=== PATIENT | male | born 1965 | race Caucasian/White ===

== ENCOUNTER 2017-07-22 15:16 | Inpatient (IN) | payer OTHER ==
[~2017-07-22] VITALS: Ht 272 cm; Wt 61.2 kg
--- NOTE | ~2017-07-22 | O ---
[place], [place] OPERATIVE NOTE NAME: VAL OJEDA UNIT #: [id number] ROOM: 407 DOCTOR: FAIZA STEVENS MDFORMERLY [facility] BIRTHDATE: [birth year] DOS: 07/25/2017 GASTROENDOSCOPIC REPORT. HISTORY OF PRESENT ILLNESS: This is a 51-year-old patient who presented with multiple issues among which has been is ambulation, anemia, history of chronic alcoholism of heavy degree for multi decades and he drinks about 15 beers. Dysphagia and dyspepsia has been in the history. PAST MEDICAL HISTORY: Chronic alcoholism, possible cirrhosis. PAST SURGICAL HISTORY: None. SOCIAL HISTORY: Drinking about 30 beer every other day, marijuana and tobacco dependency. FAMILY HISTORY: Noncontributory. ALLERGIES: No known medication. PROCEDURE: Today's procedure part of investigation is esophagoscopy and biopsy. PREMEDICATION: Versed and Diprivan. SCOPE: Olympus forward-viewing gastroscope Q10 video. REPORT: After putting the patient in left lateral position and application of lubricant to the scope, the scope was introduced. Thereafter, under direct visualization, I advanced through the length of esophagus without difficulty. Diffuse distal esophageal and mid esophageal ulceration secondary to reflux was noticed. Distal esophageal stricture of high-grade was seen. Scope is non-negotiable into distal esophagus and beyond. Photographic series obtained and biopsy from the ulcer of esophagus was obtained, the patient extubated, tolerated procedure well. IMPRESSION: Diffuse distal and mid esophageal ulcerations, high grade distal esophageal stricture, history of alcoholism of extreme degree, protein-calorie malnutrition and electrolyte imbalance that has been corrected, thrombocytopenia. PLAN AND DISCUSSION: We are going to aggressively address esophageal ulcers. We are going to keep him on sucralfate 2 grams slurry q.i.d. 2 hours before meals and at bedtime. We are going to keep him on Protonix 40 mg IV b.i.d. while inpatient. We are going to make sure that he is on Ensure Plus 1 can 4 times a day to catch up with his protein-calorie malnutrition. We are going to enforce antireflux measures with elevation of the head of the bed 6 inch all time. We are going to assure that he is going to get 5 mg of Reglan liquid if possible daily and his diet to become soft mechanical diet rather grind did so that he does not have to have esophageal foreign body of food bolus risk and he is advised to abstain from alcohol drinking; however, I do not believe this is [place], [place] OPERATIVE NOTE NAME: VAL OJEDA UNIT #: [id number] ROOM: 407 DOCTOR: RODNEY ESPINOZA,REINALDO BIRTHDATE: [birth year] going to be fruitful in his case, however, we will try. As far as his records is concerns his CT scan of the abdomen and pelvis has already shown vegetation, dentation and thickening of the great gastric pouch and cholelithiasis. In addition to a small hiatal hernia and surprisingly enough report of CT scan is normal liver and his main organs including pancreas, spleen, adrenal gland and kidneys have not shown any pathology. REINALDO STEVENS MD CM:OPRECORD:OPERATIVE NOTE [id number] REINALDO STEVENS MD 07/25/17 1706 interface
--- NOTE | ~2017-07-22 | PR ---
[place], [place] PROGRESS NOTE NAME: VAL OJEDA UNIT #: [id number] ROOM: 407 DOCTOR: NAS TYLER MD BIRTHDATE: [birth year] DOS: 07/27/2017 SUBJECTIVE: The patient was seen and examined. He is awake and alert. Denies shortness of breath. He is on room air. He denies nausea or vomiting. PHYSICAL EXAMINATION: VITAL SIGNS: Temperature 97.7, pulse 72, respiration 18, blood pressure 92/54. HEENT: Shows no JVD. LUNGS: Clear. No wheeze. HEART: Normal S1, S2. No rub, thrill or gallop. ABDOMEN: Soft, nontender. There is no organomegaly. EXTREMITIES: Showed no edema. SKIN: Showed no rash. LABORATORY DATA: Hemoglobin 9.3, white count of 2.3, platelets of 99. Sodium 132, potassium 3.7, CO2 of 23, BUN 6, creatinine 0.56, calcium 7.2, albumin 1.8. ASSESSMENT AND PLAN: 1. Hyponatremia, which seems to be stable and overall slightly improved. Continue to follow labs while in the hospital, fluid restrict and use loop diuretics only. 2. Anemia. Follow H and H. Transfuse as felt needed. 3. Leukopenia. This appears to be stable. Continue to follow while in the hospital. 4. Hypoalbuminemia/protein-calorie malnutrition. Continue oral intake and supplementation as tolerated. NAS TYLER MD CM:PNTRANS [id number] NAS TYLER MD 07/27/17 1750 interface
[2017-07-22 16:10] VITALS: BP 110/70
[2017-07-22 16:23] LABS: BASO % 0.2 % (0.0-1.0); EOS % 0.2 % (1.0-4.0); HEMATOCRIT 27.2 % (42.0-52.0); HEMOGLOBIN 10.2 g/dl (14.0-18.0); LYMPH % 24.8 % (27.0-41.0); MEAN CELL VOLUME 95.8 fl (80.0-94.0); MEAN CORPUSCULAR HGB 35.9 pg (27.0-31.0); MEAN PLATELET VOLUME 9.8 fl (9.6-12.3); MONO # 0.2 10*3/uL (0.1-1.0); MONO % 4.4 % (3.0-9.0); NEUT # 2.9 10*3/uL (2.3-7.9); NEUT % 69.9 % (47.0-73.0); PLATELET COUNT AUTOMATED 138 10*3/uL (130-400); RED BLOOD COUNT 2.84 10*6/uL (4.50-5.90); RED CELL DISTRI WIDTH 13.3 % (0-14.5); WHITE BLOOD COUNT 4.1 10*3/uL (4.8-10.8)
[2017-07-22 16:41] LABS: ALBUMIN 2.5 gm/dl (3.1-4.5); ALKALINE PHOSPHATASE 134 U/L (45-117); BUN 15 mg/dl (7-24); CHLORIDE 89 mmol/L (98-107); CREATININE 0.84 mg/dL (0.70-1.30); LIPASE 228 U/L (73-393); POTASSIUM 3.8 mmol/L (3.5-5.1); SGOT/AST 56 IU/L (3-35); SGPT/ALT 43 U/L (12-78); SODIUM 122 mmol/L (136-145)
[2017-07-22 16:42] LABS: ETHYL ALCOHOL < 3.0 mg/dl (<3); TROPONIN I < 0.015 ng/ml (<0.045)
[2017-07-22 16:56] LABS: MEAN CORPUSCULAR HGB CONC 37.5 g/dl (33.0-37.0)
[2017-07-22 17:13] VITALS: BP 111/92
[2017-07-22 18:22] LABS: ACT PARTIAL THROMBO TIME 27.3 SECONDS (20.8-31.5); INTERNATIONAL NORM RATIO 1.2 (2.0-3.5)
[2017-07-22 19:24] VITALS: BP 104/61
[2017-07-22 20:00] VITALS: BP 106/67
[2017-07-23] VITALS: BP 103/60
[2017-07-23 07:09] LABS: HEMATOCRIT 22.2 % (42.0-52.0); MEAN CELL VOLUME 98.2 fl (80.0-94.0); MEAN CORPUSCULAR HGB 35.8 pg (27.0-31.0); MEAN CORPUSCULAR HGB CONC 36.5 g/dl (33.0-37.0); MEAN PLATELET VOLUME 9.9 fl (9.6-12.3); NUCLEATED RED BLOOD CELL 1.1 % (0.0-0.0); PLATELET COUNT AUTOMATED 119 10*3/uL (130-400); RED BLOOD COUNT 2.26 10*6/uL (4.50-5.90); RED CELL DISTRI WIDTH 13.7 % (0-14.5); WHITE BLOOD COUNT 3.6 10*3/uL (4.8-10.8)
[2017-07-23 07:11] LABS: HEMOGLOBIN 8.1 g/dl (14.0-18.0)
[2017-07-23 07:35] LABS: ACT PARTIAL THROMBO TIME 26.7 SECONDS (20.8-31.5); INTERNATIONAL NORM RATIO 1.1 (2.0-3.5)
[2017-07-23 07:38] LABS: CHLORIDE 93 mmol/L (98-107); PLATELET SUFFICIENCY LOW (NORMAL); POLYCHROMASIA SLIGHT; SODIUM 128 mmol/L (136-145); TOTAL CELLS COUNTED 100 #CELLS
[2017-07-23 08:00] VITALS: BP 112/78
[2017-07-23 08:09] LABS: ALBUMIN 2.2 gm/dl (3.1-4.5); ALKALINE PHOSPHATASE 115 U/L (45-117); BUN 14 mg/dl (7-24); CHOLESTEROL 53 mg/dL (<200); CREATININE 0.67 mg/dL (0.70-1.30); FREE T4 1.28 ng/dl (0.76-1.46); HDL CHOLESTEROL 28 mg/dl (40-60); LDL CHOLESTEROL 9 mg/dL (9-159); PHOSPHOROUS 3.7 mg/dL (2.5-4.9); SGOT/AST 47 IU/L (3-35); SGPT/ALT 35 U/L (12-78); TOTAL PROTEIN 5.2 gm/dL (6.4-8.2); TRIGLYCERIDES 80 mg/dl (<150); VLDL CHOLESTEROL 16 mg/dL (6-40)
[2017-07-23 08:19] LABS: POTASSIUM 2.6 mmol/L (3.5-5.1)
[2017-07-23 08:52] LABS: VITAMIN D, 25-HYDROXY 5.3 ng/mL (30-100)
[2017-07-23 12:00] VITALS: BP 106/60
[2017-07-23 13:09] LABS: BILIRUBIN 2+ (NEGATIVE); BLOOD TRACE-LYSED (NEGATIVE); CLARITY CLEAR (CLEAR); COLOR YELLOW (YELLOW); GLUCOSE TRACE (NEGATIVE); KETONE 1+ (NEGATIVE); LEUKO ESTERASE NEGATIVE (NEGATIVE); NITRITE POSITIVE (NEGATIVE); PH 6.5 (5.0-9.0); UROBILINOGEN >= 8.0 E.U./dl (0.2-1.0)
[2017-07-23 13:15] LABS: URINE AMPHETAMINES < 1000 (1000ng/ml); URINE BARBITURATES < 200 (200ng/ml); URINE BENZODIAZEPINES < 200 (200ng/ml); URINE CANNABINOIDS (THC) > 50 (50ng/ml); URINE COCAINE < 300 (300ng/ml); URINE METHADONE < 300 (300ng/ml); URINE OPIATES > 300 (300ng/ml)
[2017-07-23 13:16] LABS: URINE PHENCYCLIDINE < 25 (25ng/ml)
[2017-07-23 13:24] LABS: BACTERIA 1+; MUCOUS 1+; RBC 16-20 rbc/hpf (0-2)
[2017-07-23 16:00] VITALS: BP 112/65
[2017-07-23 20:00] VITALS: BP 96/51
[2017-07-24] VITALS (9 sets, daily range): BP systolic 95–111; BP diastolic 57–68
[2017-07-24 05:57] LABS: ALBUMIN 1.9 gm/dl (3.1-4.5); BUN 11 mg/dl (7-24); CHLORIDE 99 mmol/L (98-107); CREATININE 0.59 mg/dL (0.70-1.30); PHOSPHOROUS 2.4 mg/dL (2.5-4.9); SODIUM 131 mmol/L (136-145)
[2017-07-24 06:09] LABS: POTASSIUM 4.5 mmol/L (3.5-5.1)
[2017-07-24 06:59] LABS: BASO % 0.3 % (0.0-1.0); HEMATOCRIT 19.2 % (42.0-52.0); HEMOGLOBIN 6.8 g/dl (14.0-18.0); LYMPH # 1.2 10*3/uL (1.3-4.4); LYMPH % 41.1 % (27.0-41.0); MEAN CORPUSCULAR HGB 36.6 pg (27.0-31.0); MEAN CORPUSCULAR HGB CONC 35.4 g/dl (33.0-37.0); MEAN PLATELET VOLUME 9.9 fl (9.6-12.3); MONO # 0.2 10*3/uL (0.1-1.0); MONO % 7.4 % (3.0-9.0); NEUT # 1.5 10*3/uL (2.3-7.9); NEUT % 49.5 % (47.0-73.0); PLATELET COUNT AUTOMATED 116 10*3/uL (130-400); RED BLOOD COUNT 1.86 10*6/uL (4.50-5.90); RED CELL DISTRI WIDTH 14.2 % (0-14.5)
[2017-07-24 07:00] LABS: MEAN CELL VOLUME 103.2 fl (80.0-94.0)
[2017-07-24 20:59] LABS: MEAN CORPUSCULAR HGB CONC 35.6 g/dl (33.0-37.0); MEAN PLATELET VOLUME 9.5 fl (9.6-12.3); NUCLEATED RED BLOOD CELL 0.1 10*3/uL (0.0-0.0); NUCLEATED RED BLOOD CELL 2.2 % (0.0-0.0); PLATELET COUNT AUTOMATED 108 10*3/uL (130-400); RED CELL DISTRI WIDTH 17.2 % (0-14.5); WHITE BLOOD COUNT 3.7 10*3/uL (4.8-10.8)
[2017-07-24 21:00] LABS: HEMATOCRIT 30.6 % (42.0-52.0); HEMOGLOBIN 10.9 g/dl (14.0-18.0); MEAN CELL VOLUME 92.7 fl (80.0-94.0)
[2017-07-24 21:19] LABS: BURR CELLS FEW; PLATELET SUFFICIENCY LOW (NORMAL); POLYCHROMASIA SLIGHT; TOTAL CELLS COUNTED 100 #CELLS
[2017-07-25] VITALS (9 sets, daily range): BP systolic 48–109; BP diastolic 18–74
[2017-07-25 06:42] LABS: BASO % 0.6 % (0.0-1.0); EOS % 0.6 % (1.0-4.0); HEMATOCRIT 26.1 % (42.0-52.0); HEMOGLOBIN 9.4 g/dl (14.0-18.0); LYMPH # 1.1 10*3/uL (1.3-4.4); LYMPH % 35.1 % (27.0-41.0); MEAN CELL VOLUME 92.9 fl (80.0-94.0); MEAN CORPUSCULAR HGB 33.5 pg (27.0-31.0); MONO # 0.2 10*3/uL (0.1-1.0); MONO % 6.1 % (3.0-9.0); NEUT # 1.8 10*3/uL (2.3-7.9); NEUT % 57.3 % (47.0-73.0); PLATELET COUNT AUTOMATED 96 10*3/uL (130-400); RED BLOOD COUNT 2.81 10*6/uL (4.50-5.90); RED CELL DISTRI WIDTH 17.7 % (0-14.5); WHITE BLOOD COUNT 3.1 10*3/uL (4.8-10.8)
[2017-07-25 06:55] LABS: BUN 10 mg/dl (7-24); CHLORIDE 97 mmol/L (98-107); CREATININE 0.59 mg/dL (0.70-1.30); POTASSIUM 4.2 mmol/L (3.5-5.1); SODIUM 131 mmol/L (136-145)
[2017-07-26 00:02] VITALS: BP 86/56
[2017-07-26 05:52] LABS: BASO % 0.9 % (0.0-1.0); EOS % 0.9 % (1.0-4.0); HEMATOCRIT 26.9 % (42.0-52.0); HEMOGLOBIN 9.5 g/dl (14.0-18.0); LYMPH # 1.3 10*3/uL (1.3-4.4); LYMPH % 39.1 % (27.0-41.0); MEAN CELL VOLUME 95.1 fl (80.0-94.0); MEAN CORPUSCULAR HGB 33.6 pg (27.0-31.0); MEAN CORPUSCULAR HGB CONC 35.3 g/dl (33.0-37.0); MEAN PLATELET VOLUME 10.1 fl (9.6-12.3); MONO # 0.3 10*3/uL (0.1-1.0); MONO % 8.7 % (3.0-9.0); NEUT # 1.6 10*3/uL (2.3-7.9); NEUT % 49.5 % (47.0-73.0); NUCLEATED RED BLOOD CELL 0.9 % (0.0-0.0); PLATELET COUNT AUTOMATED 106 10*3/uL (130-400); RED BLOOD COUNT 2.83 10*6/uL (4.50-5.90); WHITE BLOOD COUNT 3.2 10*3/uL (4.8-10.8)
[2017-07-26 05:58] LABS: BUN 9 mg/dl (7-24); CHLORIDE 98 mmol/L (98-107); CREATININE 0.65 mg/dL (0.70-1.30); SODIUM 131 mmol/L (136-145)
[2017-07-26 08:00] VITALS: BP 105/69
[2017-07-26 12:00] VITALS: BP 92/65
[2017-07-26 16:00] VITALS: BP 115/93
[2017-07-26 20:00] VITALS: BP 108/66
[2017-07-27 00:01] VITALS: BP 101/69
[2017-07-27 06:03] LABS: HEMATOCRIT 26.1 % (42.0-52.0); HEMOGLOBIN 9.3 g/dl (14.0-18.0); MEAN CELL VOLUME 94.9 fl (80.0-94.0); MEAN CORPUSCULAR HGB 33.8 pg (27.0-31.0); MEAN CORPUSCULAR HGB CONC 35.6 g/dl (33.0-37.0); MEAN PLATELET VOLUME 10.1 fl (9.6-12.3); PLATELET COUNT AUTOMATED 99 10*3/uL (130-400); RED BLOOD COUNT 2.75 10*6/uL (4.50-5.90); RED CELL DISTRI WIDTH 18.3 % (0-14.5); WHITE BLOOD COUNT 2.3 10*3/uL (4.8-10.8)
[2017-07-27 06:34] LABS: ALBUMIN 1.8 gm/dl (3.1-4.5); ALKALINE PHOSPHATASE 87 U/L (45-117); BUN 6 mg/dl (7-24); CHLORIDE 99 mmol/L (98-107); CREATININE 0.56 mg/dL (0.70-1.30); POTASSIUM 3.7 mmol/L (3.5-5.1); SGOT/AST 28 IU/L (3-35); SGPT/ALT 21 U/L (12-78); SODIUM 132 mmol/L (136-145); TOTAL PROTEIN 4.4 gm/dL (6.4-8.2)
[2017-07-27 06:35] LABS: ATYPICAL LYMPHS 2 % (0-0); BASOPHILS 1 % (0-1); TOTAL CELLS COUNTED 100 #CELLS
[2017-07-27 06:36] LABS: BURR CELLS FEW; PLATELET SUFFICIENCY LOW (NORMAL)
[2017-07-27 08:00] VITALS: BP 119/72
[2017-07-27 12:00] VITALS: BP 92/54
[2017-07-27 16:00] VITALS: BP 120/80
[2017-07-27 20:00] VITALS: BP 109/87
[2017-07-28] VITALS: BP 108/80
[2017-07-28 07:01] LABS: BASO % 0.6 % (0.0-1.0); EOS % 0.6 % (1.0-4.0); HEMATOCRIT 25.4 % (42.0-52.0); LYMPH # 1.1 10*3/uL (1.3-4.4); LYMPH % 31.6 % (27.0-41.0); MEAN CELL VOLUME 95.8 fl (80.0-94.0); MEAN CORPUSCULAR HGB CONC 35.4 g/dl (33.0-37.0); MEAN PLATELET VOLUME 10.3 fl (9.6-12.3); MONO # 0.2 10*3/uL (0.1-1.0); MONO % 5.4 % (3.0-9.0); NEUT # 2.2 10*3/uL (2.3-7.9); NEUT % 61.5 % (47.0-73.0); PLATELET COUNT AUTOMATED 108 10*3/uL (130-400); RED BLOOD COUNT 2.65 10*6/uL (4.50-5.90); RED CELL DISTRI WIDTH 18.3 % (0-14.5); WHITE BLOOD COUNT 3.5 10*3/uL (4.8-10.8)
[2017-07-28 07:08] LABS: ALBUMIN 1.8 gm/dl (3.1-4.5); BUN 6 mg/dl (7-24); CHLORIDE 95 mmol/L (98-107); CREATININE 0.55 mg/dL (0.70-1.30); PHOSPHOROUS 2.2 mg/dL (2.5-4.9); POTASSIUM 3.9 mmol/L (3.5-5.1); SODIUM 130 mmol/L (136-145)
[2017-07-28 08:00] VITALS: BP 118/76
[2017-07-28 12:00] VITALS: BP 95/60
[2017-07-28] MEDS ORDERED: NATURE'S BLEND100 M2 PO (15:42)
[2017-07-28] MEDS ORDERED: CIPRO500 MG PO (15:42)
[2017-07-28] MEDS ORDERED: REGLAN10 MG/10 M PO (15:42)
[2017-07-28] MEDS ORDERED: Vitamin D PO (15:42)
[2017-07-28] MEDS ORDERED: PROTONIX40 M1 PO (15:42)
[2017-07-28] MEDS ORDERED: FLUDROCORTISON0.1 MG PO (15:42)
[2017-07-28] MEDS ORDERED: Carafate1 GM/10 ML PO (15:42)
[2017-07-28] MEDS ORDERED: NATURE'S BLEND F1 MG PO (15:42)
[2017-07-28] MEDS ORDERED: FLAGYL500 MG PO (15:42)
[2017-07-28] MEDS ORDERED: SODIUM CHLORI1000 MG PO (15:51)
== END 2017-07-28 16:50 | disposition other institution (70) | DRG 380 ==
LOC: ED 15:16 → EDHOLD 17:08 → 4E 17:08
PROVIDERS: Internal Medicine; Internal Medicine Nephrology; Physician Assistant
PROC: 30233N1 Transfusion of Nonautologous Red Blood Cells into Peripheral Vein, Percutaneous Approach (ICD-10-PCS; 2017-07-24)
PROC: 0DB58ZX Excision of Esophagus, Via Natural or Artificial Opening Endoscopic, Diagnostic (ICD-10-PCS; principal; 2017-07-25)
DX: K22.11 Ulcer of esophagus with bleeding (principal); E43 Unspecified severe protein-calorie malnutrition; D69.6 Thrombocytopenia, unspecified; E67.8 Other specified hyperalimentation; D62 Acute posthemorrhagic anemia; K29.91 Gastroduodenitis, unspecified, with bleeding; E87.8 Other disorders of electrolyte and fluid balance, not elsewhere classified; E87.1 Hypo-osmolality and hyponatremia; Z68.1 Body mass index [BMI] 19.9 or less, adult; E83.39 Other disorders of phosphorus metabolism; K22.2 Esophageal obstruction; K80.20 Calculus of gallbladder without cholecystitis without obstruction; W07.XXXA Fall from chair, initial encounter; E87.6 Hypokalemia; D53.9 Nutritional anemia, unspecified; D72.810 Lymphocytopenia; M54.9 Dorsalgia, unspecified; F10.20 Alcohol dependence, uncomplicated; I95.1 Orthostatic hypotension; R74.0 Nonspecific elevation of levels of transaminase and lactic acid dehydrogenase [LDH]; E80.6 Other disorders of bilirubin metabolism; F17.210 Nicotine dependence, cigarettes, uncomplicated; G89.29 Other chronic pain; Y93.89 Activity, other specified; Y92.89 Other specified places as the place of occurrence of the external cause; Y99.8 Other external cause status; Z83.3 Family history of diabetes mellitus

== ENCOUNTER → 2017-10-02 | Outpatient (CLI) | payer OTHER ==
[~2017-10-02] MED LIST: CIPRO500 MG PO; Carafate1 GM/10 ML PO; FLAGYL500 MG PO; FLUDROCORTISON0.1 MG PO; NATURE'S BLEND F1 MG PO; NATURE'S BLEND100 M2 PO; PROTONIX40 M1 PO; REGLAN10 MG/10 M PO; SODIUM CHLORI1000 MG PO; Vitamin D PO
[2017-10-02 14:18] LABS: BASO % 0.8 % (0.0-1.0); EOS # 0.2 10*3/uL (0.0-0.4); EOS % 2.9 % (1.0-4.0); HEMATOCRIT 40.8 % (42.0-52.0); HEMOGLOBIN 13.5 g/dl (14.0-18.0); LYMPH # 2.3 10*3/uL (1.3-4.4); LYMPH % 45.2 % (27.0-41.0); MEAN CELL VOLUME 98.1 fl (80.0-94.0); MEAN CORPUSCULAR HGB 32.5 pg (27.0-31.0); MEAN CORPUSCULAR HGB CONC 33.1 g/dl (33.0-37.0); MEAN PLATELET VOLUME 9.5 fl (9.6-12.3); MONO # 0.4 10*3/uL (0.1-1.0); MONO % 8.5 % (3.0-9.0); NEUT # 2.2 10*3/uL (2.3-7.9); NEUT % 42.4 % (47.0-73.0); PLATELET COUNT AUTOMATED 224 10*3/uL (130-400); RED BLOOD COUNT 4.16 10*6/uL (4.50-5.90); RED CELL DISTRI WIDTH 13.7 % (0-14.5); WHITE BLOOD COUNT 5.2 10*3/uL (4.8-10.8)
[2017-10-02 14:43] LABS: ALBUMIN 3.8 gm/dl (3.1-4.5); ALKALINE PHOSPHATASE 117 U/L (45-117); BUN 9 mg/dl (7-24); CHLORIDE 98 mmol/L (98-107); CREATININE 0.89 mg/dL (0.70-1.30); POTASSIUM 4.3 mmol/L (3.5-5.1); SGOT/AST 25 IU/L (3-35); SGPT/ALT 13 U/L (12-78); SODIUM 137 mmol/L (136-145); TOTAL PROTEIN 7.8 gm/dL (6.4-8.2)
== END | disposition home or self-care (01) ==
LOC: CARD 13:00 → LAB 13:09
PROVIDERS: Internal Medicine
DX: I35.1 Nonrheumatic aortic (valve) insufficiency (principal); K29.60 Other gastritis without bleeding; E55.9 Vitamin D deficiency, unspecified; E43 Unspecified severe protein-calorie malnutrition; R60.0 Localized edema

== ENCOUNTER → 2018-04-01 | Outpatient (CLI) | payer OTHER ==
[~2018-04-01] MED LIST changes: +ASPIR LOW81 MG PO; +CARVEDILOL6.25 MG PO; +K-TAB20 MEQ PO; +KLOR-CON M2020 ME1 PO; +LASIX40 MG PO; +LEVAQUIN750 M1 PO; +LOSARTAN POTASS25 M1 PO; +METOPROLOL25 MG PO; +MUCINEX ER600 MG PO; +PAXIL20 M1 PO; +PREDNISONE10 MG PO; +VITAMIN D-32000 UNIT PO; +XARE20MG PO
== END | disposition home or self-care (01) ==
LOC: RESCLI 01:23
DX: Z09 Encounter for follow-up examination after completed treatment for conditions other than malignant neoplasm (principal); J44.9 Chronic obstructive pulmonary disease, unspecified; I50.32 Chronic diastolic (congestive) heart failure; E66.9 Obesity, unspecified; E55.9 Vitamin D deficiency, unspecified; K21.9 Gastro-esophageal reflux disease without esophagitis; F32.9 Major depressive disorder, single episode, unspecified; I48.0 Paroxysmal atrial fibrillation; E87.1 Hypo-osmolality and hyponatremia; E53.8 Deficiency of other specified B group vitamins; F17.200 Nicotine dependence, unspecified, uncomplicated; Z79.899 Other long term (current) drug therapy; Z71.6 Tobacco abuse counseling; Z88.8 Allergy status to other drugs, medicaments and biological substances

== ENCOUNTER → 2018-05-07 | Outpatient (CLI) | payer OTHER | END | disposition home or self-care (01) | LOC: RESCLI 01:05 | DX: Z01.818 Encounter for other preprocedural examination (principal); E55.9 Vitamin D deficiency, unspecified; K21.9 Gastro-esophageal reflux disease without esophagitis; E53.8 Deficiency of other specified B group vitamins; F32.9 Major depressive disorder, single episode, unspecified; I11.0 Hypertensive heart disease with heart failure; I50.32 Chronic diastolic (congestive) heart failure; E87.1 Hypo-osmolality and hyponatremia; J90 Pleural effusion, not elsewhere classified; J44.9 Chronic obstructive pulmonary disease, unspecified; I48.0 Paroxysmal atrial fibrillation; F17.210 Nicotine dependence, cigarettes, uncomplicated; E66.09 Other obesity due to excess calories; Z68.32 Body mass index [BMI] 32.0-32.9, adult; Z79.899 Other long term (current) drug therapy; Z71.6 Tobacco abuse counseling; Z88.8 Allergy status to other drugs, medicaments and biological substances ==

== ENCOUNTER → 2018-05-18 | Outpatient (CLI) | payer OTHER ==
[2018-05-19 08:10] LABS: ALPHA-1-ANTITRYPSIN, SERUM 150 mg/dL (90-200)
== END | disposition home or self-care (01) ==
LOC: LAB 12:43
PROVIDERS: Internal Medicine Critical Care Medicine
DX: J44.9 Chronic obstructive pulmonary disease, unspecified (principal)

== ENCOUNTER → 2018-06-12 | Outpatient (CLI) | payer OTHER | END | disposition home or self-care (01) | LOC: RESCLI 01:51 | DX: Z00.00 Encounter for general adult medical examination without abnormal findings (principal); I48.0 Paroxysmal atrial fibrillation; I11.0 Hypertensive heart disease with heart failure; I50.32 Chronic diastolic (congestive) heart failure; E55.9 Vitamin D deficiency, unspecified; K21.9 Gastro-esophageal reflux disease without esophagitis; E53.8 Deficiency of other specified B group vitamins; F32.9 Major depressive disorder, single episode, unspecified; E87.1 Hypo-osmolality and hyponatremia; F17.210 Nicotine dependence, cigarettes, uncomplicated; E66.9 Obesity, unspecified; J44.9 Chronic obstructive pulmonary disease, unspecified; Z71.6 Tobacco abuse counseling; Z79.899 Other long term (current) drug therapy; Z88.8 Allergy status to other drugs, medicaments and biological substances ==

== ENCOUNTER → 2018-07-03 | Day surgery (SDC) | payer OTHER ==
[~2018-07-03] VITALS: Ht 182.8 cm; Wt 68.0 kg
--- NOTE | ~2018-07-03 | O ---
[place], [place] OPERATIVE NOTE NAME: VAL OJEDA UNIT #: [id number] ROOM: DOCTOR: REINALDO STEVENS MD BIRTHDATE: [birth year] DOS: 07/03/2018 GASTROENDOSCOPIC REPORT The patient has presented with chief complaint of colonic screening. The patient is a 51-year-old. ALLERGIES: No known medication. FAMILY HISTORY: Noncontributory. PAST SURGICAL HISTORY: Unremarkable. PAST MEDICAL HISTORY: COPD, atrial fibrillation, congestive heart failure. SOCIAL HISTORY: Smoker history of alcohol consumption. PROCEDURE: Today's procedure part of investigation is colonoscopy plus polypectomy. PREMEDICATION: Propofol. SCOPE: Olympus forward-viewing colonoscope 10L video. REPORT: After putting the patient in left lateral position and application of lubricant to the scope, the scope was introduced. Thereafter, under direct visualization, advanced through the length of colon without difficulty. Base of the cecum explored, appendiceal orifice identified, ileocecal valve was defined. Scope was gradually withdrawn from ascending, transverse, descending colon back to the rectal pouch, piecemeal polypectomy from a polypoid sessile polyp was done. Air was suctioned. The patient extubated, tolerated the procedure well. IMPRESSION: Rectal pouch sessile polypectomy. PLAN ON DISCUSSION: High fiber fruit diet. ACTIVITY: Ad morena. FOLLOWUP: Routinely with you in office, p.r.n. visit with us in GI Clinic. The patient advised to abstain from smoking, and alcohol. [place], [place] OPERATIVE NOTE NAME: VAL OJEDA UNIT #: [id number] ROOM: DOCTOR: REINALDO STEVENS MD BIRTHDATE: [birth year] REINALDO STEVENS MD CM:OPRECORD:OPERATIVE NOTE [id number] REINALDO STEVENS MD 07/03/18 1158 interface
[2018-07-03 09:00] VITALS: BP 157/68
[2018-07-03 11:40] VITALS: BP 119/69
[2018-07-03 11:51] VITALS: BP 133/73
[2018-07-03 12:09] VITALS: BP 148/79
== END | disposition home or self-care (01) ==
LOC: SDC 06-12 11:00
DX: Z12.11 Encounter for screening for malignant neoplasm of colon (principal); K62.1 Rectal polyp; I10 Essential (primary) hypertension; I11.0 Hypertensive heart disease with heart failure; J44.9 Chronic obstructive pulmonary disease, unspecified; K21.9 Gastro-esophageal reflux disease without esophagitis; F10.10 Alcohol abuse, uncomplicated; F17.210 Nicotine dependence, cigarettes, uncomplicated; F32.9 Major depressive disorder, single episode, unspecified; Z83.3 Family history of diabetes mellitus

== ENCOUNTER → 2018-08-03 | Outpatient (CLI) | payer OTHER | END | disposition home or self-care (01) | LOC: CARD 07:40 | DX: I35.1 Nonrheumatic aortic (valve) insufficiency (principal); I48.0 Paroxysmal atrial fibrillation; I50.23 Acute on chronic systolic (congestive) heart failure; I42.6 Alcoholic cardiomyopathy ==

== ENCOUNTER → 2018-09-22 | Outpatient (CLI) | payer OTHER | END | disposition home or self-care (01) | LOC: RESCLI 08:24 | DX: Z00.00 Encounter for general adult medical examination without abnormal findings (principal); I11.0 Hypertensive heart disease with heart failure; I50.32 Chronic diastolic (congestive) heart failure; E55.9 Vitamin D deficiency, unspecified; K21.9 Gastro-esophageal reflux disease without esophagitis; E53.8 Deficiency of other specified B group vitamins; E87.1 Hypo-osmolality and hyponatremia; I48.0 Paroxysmal atrial fibrillation; F32.9 Major depressive disorder, single episode, unspecified; Z79.899 Other long term (current) drug therapy; Z87.891 Personal history of nicotine dependence; Z88.8 Allergy status to other drugs, medicaments and biological substances ==

== ENCOUNTER → 2018-10-28 | Outpatient (CLI) | payer OTHER ==
[2018-10-28 10:02] LABS: BASO # 0.1 10*3/uL (0.0-0.1); EOS # 0.2 10*3/uL (0.0-0.4); EOS % 4.4 % (1.0-4.0); HEMATOCRIT 44.2 % (42.0-52.0); HEMOGLOBIN 14.9 g/dl (14.0-18.0); LYMPH # 2.4 10*3/uL (1.3-4.4); MEAN CELL VOLUME 101.1 fl (80.0-94.0); MEAN CORPUSCULAR HGB 34.1 pg (27.0-31.0); MEAN CORPUSCULAR HGB CONC 33.7 g/dl (33.0-37.0); MONO # 0.4 10*3/uL (0.1-1.0); MONO % 8.3 % (3.0-9.0); NEUT % 39.1 % (47.0-73.0); PLATELET COUNT AUTOMATED 215 10*3/uL (130-400); RED BLOOD COUNT 4.37 10*6/uL (4.50-5.90); RED CELL DISTRI WIDTH 12.7 % (0-14.5); WHITE BLOOD COUNT 5.2 10*3/uL (4.8-10.8)
[2018-10-28 10:28] LABS: ALBUMIN 3.5 gm/dl (3.1-4.5); ALKALINE PHOSPHATASE 133 U/L (45-117); BUN 11 mg/dl (7-24); CHLORIDE 101 mmol/L (98-107); CHOLESTEROL 141 mg/dL (<200); CREATININE 1.14 mg/dL (0.70-1.30); HDL CHOLESTEROL 42 mg/dl (40-60); LDL CHOLESTEROL 80 mg/dL (9-159); POTASSIUM 4.5 mmol/L (3.5-5.1); SGOT/AST 22 IU/L (3-35); SGPT/ALT 19 U/L (12-78); SODIUM 136 mmol/L (136-145); TOTAL PROTEIN 7.3 gm/dL (6.4-8.2); TRIGLYCERIDES 93 mg/dl (<150); VLDL CHOLESTEROL 19 mg/dL (6-40)
[2018-10-28 12:07] LABS: VITAMIN D, 25-HYDROXY 36.1 ng/mL (30-100)
== END | disposition home or self-care (01) ==
LOC: LAB 09:28
PROVIDERS: Internal Medicine
DX: I10 Essential (primary) hypertension (principal)

== ENCOUNTER → 2019-01-06 | Outpatient (CLI) | payer OTHER | END | disposition home or self-care (01) | LOC: RESCLI 01:02 | DX: I11.0 Hypertensive heart disease with heart failure (principal); I50.32 Chronic diastolic (congestive) heart failure; E55.9 Vitamin D deficiency, unspecified; K21.9 Gastro-esophageal reflux disease without esophagitis; E53.8 Deficiency of other specified B group vitamins; E87.1 Hypo-osmolality and hyponatremia; I48.0 Paroxysmal atrial fibrillation; F32.9 Major depressive disorder, single episode, unspecified; J44.9 Chronic obstructive pulmonary disease, unspecified; Z79.899 Other long term (current) drug therapy; Z87.891 Personal history of nicotine dependence ==

== ENCOUNTER → 2019-04-06 | Outpatient (CLI) | payer OTHER ==
[~2019-04-06] MED LIST changes: +ANTIBIOTIC28.4 GM T; +CEPHALEXIN500 M1 PO
== END | disposition home or self-care (01) ==
LOC: RESCLI 00:27
DX: Z23 Encounter for immunization (principal); L03.113 Cellulitis of right upper limb; E53.8 Deficiency of other specified B group vitamins; I11.0 Hypertensive heart disease with heart failure; I50.32 Chronic diastolic (congestive) heart failure; K21.9 Gastro-esophageal reflux disease without esophagitis; I48.0 Paroxysmal atrial fibrillation; F32.9 Major depressive disorder, single episode, unspecified; J44.9 Chronic obstructive pulmonary disease, unspecified; E55.9 Vitamin D deficiency, unspecified; W55.03XA Scratched by cat, initial encounter; F17.210 Nicotine dependence, cigarettes, uncomplicated; Z71.6 Tobacco abuse counseling; Y93.89 Activity, other specified; Y92.89 Other specified places as the place of occurrence of the external cause; Y99.8 Other external cause status

== ENCOUNTER 2019-05-12 19:23 | Emergency (ER) | payer OTHER ==
[~2019-05-12] VITALS: Wt 77.6 kg
--- NOTE | ~2019-05-12 | EKG ---
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1965 Requested By: MARCOS ZIMMERMAN DNP Order Number: [id number] Reading MD: Desean Salgado MD Measurements Intervals [place] Rate: 83 P: 4 PA: 204 QRS: -50 QRSD: 112 T: 29 QT: 399 QTc: 469 Interpretive Statements Sinus rhythm Borderline prolonged PA interval LAD, consider left anterior fascicular block Left ventricular hypertrophy Baseline wander in lead(s) V3 Compared to ECG 04/27/2018 04:49:39 Sinus tachycardia no longer present Early repolarization no longer present Electronically Signed On 05-13-2019 8:19:30 PST by Desean Salgado MD CM:EKGRPT:ELECTROCARDIOGRAM REPORT 44 8 MARCOS GRAHAM DRAFT REPORT MARCOS ZIMMERMAN DNP
[~2019-05-12 19:23] MED LIST changes: -ANTIBIOTIC28.4 GM T; -CEPHALEXIN500 M1 PO
[2019-05-12 19:53] LABS: BASO # 0.1 10*3/uL (0.0-0.1); BASO % 0.5 % (0.0-1.0); EOS # 0.2 10*3/uL (0.0-0.4); EOS % 1.6 % (1.0-4.0); HEMATOCRIT 42.5 % (42.0-52.0); LYMPH # 4.4 10*3/uL (1.3-4.4); LYMPH % 39.9 % (27.0-41.0); MEAN CELL VOLUME 97.5 fl (80.0-94.0); MEAN CORPUSCULAR HGB 34.4 pg (27.0-31.0); MEAN CORPUSCULAR HGB CONC 35.3 g/dl (33.0-37.0); MEAN PLATELET VOLUME 9.2 fl (9.6-12.3); MONO # 0.6 10*3/uL (0.1-1.0); MONO % 5.1 % (3.0-9.0); NEUT # 5.8 10*3/uL (2.3-7.9); NEUT % 52.5 % (47.0-73.0); PLATELET COUNT AUTOMATED 203 10*3/uL (130-400); RED BLOOD COUNT 4.36 10*6/uL (4.50-5.90); WHITE BLOOD COUNT 11.1 10*3/uL (4.8-10.8)
[2019-05-12 20:05] LABS: ACT PARTIAL THROMBO TIME 27.1 SECONDS (20.0-32.1); INTERNATIONAL NORM RATIO 0.9 (2.0-3.5)
[2019-05-12 20:12] LABS: ALBUMIN 3.8 gm/dl (3.1-4.5); ALKALINE PHOSPHATASE 99 U/L (45-117); BUN 7 mg/dl (7-24); CHLORIDE 91 mmol/L (98-107); CREATININE 0.91 mg/dL (0.70-1.30); LIPASE 98 U/L (73-393); POTASSIUM 3.3 mmol/L (3.5-5.1); SGOT/AST 42 IU/L (3-35); SGPT/ALT 26 U/L (12-78); SODIUM 125 mmol/L (136-145); TOTAL PROTEIN 7.2 gm/dL (6.4-8.2)
[2019-05-12 20:16] LABS: TROPONIN I < 0.015 ng/ml (<0.045)
[2019-05-12] MEDS ORDERED: CEPHALEXIN500 M1 PO (21:10)
[2019-05-12] MEDS ORDERED: ANTIBIOTIC28.4 GM T (21:10)
== END 2019-05-12 22:58 | disposition home or self-care (01) ==
LOC: ED 19:23
PROVIDERS: Nurse Practitioner Family
DX: S51.812A Laceration without foreign body of left forearm, initial encounter (principal); S51.811A Laceration without foreign body of right forearm, initial encounter; S90.01XA Contusion of right ankle, initial encounter; S80.12XA Contusion of left lower leg, initial encounter; E87.6 Hypokalemia; F10.920 Alcohol use, unspecified with intoxication, uncomplicated; I11.0 Hypertensive heart disease with heart failure; I50.30 Unspecified diastolic (congestive) heart failure; G89.29 Other chronic pain; J44.9 Chronic obstructive pulmonary disease, unspecified; K21.9 Gastro-esophageal reflux disease without esophagitis; E78.5 Hyperlipidemia, unspecified; F12.90 Cannabis use, unspecified, uncomplicated; F17.200 Nicotine dependence, unspecified, uncomplicated; Z23 Encounter for immunization; Z79.899 Other long term (current) drug therapy; Z79.82 Long term (current) use of aspirin; W18.39XA Other fall on same level, initial encounter; Y93.89 Activity, other specified; Y92.89 Other specified places as the place of occurrence of the external cause; Y99.8 Other external cause status; Y90.7 Blood alcohol level of 200-239 mg/100 ml

== ENCOUNTER → 2019-05-24 | Outpatient (CLI) | payer OTHER ==
[~2019-05-24] MED LIST changes: +ANTIBIOTIC28.4 GM T; +CEPHALEXIN500 M1 PO
== END | disposition home or self-care (01) ==
LOC: RESCLI 13:42
DX: S51.811D Laceration without foreign body of right forearm, subsequent encounter (principal); Z00.00 Encounter for general adult medical examination without abnormal findings; I11.0 Hypertensive heart disease with heart failure; I50.32 Chronic diastolic (congestive) heart failure; Z72.0 Tobacco use; Z71.6 Tobacco abuse counseling; E53.8 Deficiency of other specified B group vitamins; E55.9 Vitamin D deficiency, unspecified; K21.9 Gastro-esophageal reflux disease without esophagitis; E87.1 Hypo-osmolality and hyponatremia; I48.0 Paroxysmal atrial fibrillation; F32.9 Major depressive disorder, single episode, unspecified; J44.9 Chronic obstructive pulmonary disease, unspecified; E87.6 Hypokalemia; I25.10 Atherosclerotic heart disease of native coronary artery without angina pectoris; X58.XXXD Exposure to other specified factors, subsequent encounter; Z79.899 Other long term (current) drug therapy

== ENCOUNTER → 2019-07-20 | Outpatient (CLI) | payer OTHER ==
[2019-07-20 10:55] LABS: BUN 10 mg/dl (7-24)
[2019-07-20 11:13] LABS: CHLORIDE 97 mmol/L (98-107); CREATININE 1.17 mg/dL (0.70-1.30); POTASSIUM 4.3 mmol/L (3.5-5.1); SODIUM 132 mmol/L (136-145)
== END | disposition home or self-care (01) ==
LOC: RESCLI 05:42
PROVIDERS: Internal Medicine
DX: S51.811D Laceration without foreign body of right forearm, subsequent encounter (principal); J44.9 Chronic obstructive pulmonary disease, unspecified; I25.10 Atherosclerotic heart disease of native coronary artery without angina pectoris; I50.32 Chronic diastolic (congestive) heart failure; I11.0 Hypertensive heart disease with heart failure; E53.8 Deficiency of other specified B group vitamins; E55.9 Vitamin D deficiency, unspecified; K21.9 Gastro-esophageal reflux disease without esophagitis; E87.1 Hypo-osmolality and hyponatremia; F32.9 Major depressive disorder, single episode, unspecified; Z71.6 Tobacco abuse counseling; Z72.0 Tobacco use; X58.XXXD Exposure to other specified factors, subsequent encounter

== ENCOUNTER 2020-01-07 19:19 | Observation (INO) | payer OTHER ==
[~2020-01-07] VITALS: Ht 175.2 cm; Wt 76.9 kg
[2020-01-07 19:23] VITALS: BP 144/82
[2020-01-07 19:45] LABS: HEMATOCRIT 42.1 % (42.0-52.0); MEAN CELL VOLUME 98.4 fl (80.0-94.0); MEAN CORPUSCULAR HGB CONC 35.6 g/dl (33.0-37.0); PLATELET COUNT AUTOMATED 148 10*3/uL (130-400); RED BLOOD COUNT 4.28 10*6/uL (4.50-5.90); RED CELL DISTRI WIDTH 12.2 % (0-14.5); WHITE BLOOD COUNT 6.2 10*3/uL (4.8-10.8)
[2020-01-07 19:58] LABS: ACT PARTIAL THROMBO TIME 29.6 SECONDS (20.0-32.1)
[2020-01-07 20:06] LABS: ALBUMIN 3.5 gm/dl (3.1-4.5); ALKALINE PHOSPHATASE 64 U/L (45-117); BUN 4 mg/dl (7-24); CHLORIDE 95 mmol/L (98-107); CREATININE 0.87 mg/dL (0.70-1.30); LIPASE 116 U/L (73-393); POTASSIUM 3.7 mmol/L (3.5-5.1); SGOT/AST 28 IU/L (3-35); SGPT/ALT 23 U/L (12-78); SODIUM 126 mmol/L (136-145)
[2020-01-07 20:08] LABS: TROPONIN I < 0.015 ng/ml (<0.045)
[2020-01-07 20:13] LABS: ATYPICAL LYMPHS 6 % (0-0); BASOPHILS 3 % (0-1); TOTAL CELLS COUNTED 100 #CELLS
[2020-01-07 20:14] LABS: BURR CELLS FEW; PLATELET SUFFICIENCY NORMAL (NORMAL)
[2020-01-07 21:00] VITALS: BP 136/85
[2020-01-07 23:30] VITALS: BP 141/85
[2020-01-08 01:22] VITALS: BP 131/82
[2020-01-08 02:05] VITALS: BP 154/91
[2020-01-08 07:02] LABS: ALBUMIN 3.1 gm/dl (3.1-4.5); ALKALINE PHOSPHATASE 64 U/L (45-117); BUN 4 mg/dl (7-24); CHLORIDE 100 mmol/L (98-107); CREATININE 0.86 mg/dL (0.70-1.30); POTASSIUM 4.3 mmol/L (3.5-5.1); SGOT/AST 30 IU/L (3-35); SGPT/ALT 23 U/L (12-78); SODIUM 130 mmol/L (136-145); TOTAL PROTEIN 6.4 gm/dL (6.4-8.2)
[2020-01-08] MEDS ORDERED: PREDNISONE50 MG PO (10:25)
[2020-01-08] MEDS ORDERED: LEVAQUIN500 M2 PO (10:25)
[2020-01-08] MEDS ORDERED: COREG3.125 MG PO (10:27)
[2020-01-08] MEDS ORDERED: Ipratropium Brom3 ML NEB (10:27)
== END 2020-01-08 12:55 | disposition home or self-care (01) ==
LOC: ED 19:19 → EDHOLD 01-08 01:40 → 4E 01-08 01:40
PROVIDERS: Nurse Practitioner Family; Student in an Organized Health Care Education/Training Program; ADMIT Internal Medicine
DX: R07.89 Other chest pain (principal); R11.2 Nausea with vomiting, unspecified; J44.1 Chronic obstructive pulmonary disease with (acute) exacerbation; E80.6 Other disorders of bilirubin metabolism; E87.1 Hypo-osmolality and hyponatremia; E83.41 Hypermagnesemia; F10.129 Alcohol abuse with intoxication, unspecified; K70.9 Alcoholic liver disease, unspecified; K21.9 Gastro-esophageal reflux disease without esophagitis; F17.200 Nicotine dependence, unspecified, uncomplicated; I50.30 Unspecified diastolic (congestive) heart failure; K44.9 Diaphragmatic hernia without obstruction or gangrene; E83.51 Hypocalcemia; D75.89 Other specified diseases of blood and blood-forming organs

== ENCOUNTER → 2020-05-18 | Outpatient (CLI) | payer OTHER ==
[~2020-05-18] MED LIST changes: +COREG3.125 MG PO; +Ipratropium Brom3 ML NEB; +LEVAQUIN500 M2 PO; +PREDNISONE50 MG PO
[2020-05-18 15:12] LABS: BASO % 0.6 % (0.0-1.0); EOS # 0.1 10*3/uL (0.0-0.4); EOS % 1.8 % (1.0-4.0); HEMATOCRIT 50.5 % (42.0-52.0); LYMPH # 2.8 10*3/uL (1.3-4.4); LYMPH % 56.1 % (27.0-41.0); MEAN CELL VOLUME 101.6 fl (80.0-94.0); MEAN CORPUSCULAR HGB CONC 34.5 g/dl (33.0-37.0); MEAN PLATELET VOLUME 9.1 fl (9.6-12.3); MONO # 0.4 10*3/uL (0.1-1.0); MONO % 7.9 % (3.0-9.0); NEUT # 1.7 10*3/uL (2.3-7.9); NEUT % 33.6 % (47.0-73.0); PLATELET COUNT AUTOMATED 142 10*3/uL (130-400); RED BLOOD COUNT 4.97 10*6/uL (4.50-5.90); WHITE BLOOD COUNT 4.9 10*3/uL (4.8-10.8)
[2020-05-18 15:27] LABS: ALBUMIN 3.5 gm/dl (3.1-4.5); ALKALINE PHOSPHATASE 89 U/L (45-117); BUN 4 mg/dl (7-24); CHLORIDE 93 mmol/L (98-107); CHOLESTEROL 98 mg/dL (<200); CREATININE 0.85 mg/dL (0.70-1.30); HDL CHOLESTEROL 70 mg/dl (40-60); LDL CHOLESTEROL 11 mg/dL (9-159); POTASSIUM 4.3 mmol/L (3.5-5.1); SGOT/AST 27 IU/L (3-35); SGPT/ALT 21 U/L (12-78); SODIUM 127 mmol/L (136-145); TOTAL PROTEIN 7.1 gm/dL (6.4-8.2); TRIGLYCERIDES 86 mg/dl (<150); VLDL CHOLESTEROL 17 mg/dL (6-40)
[2020-05-18 15:59] LABS: VITAMIN D, 25-HYDROXY 57.9 ng/mL (30-100)
== END | disposition home or self-care (01) ==
LOC: RESCLI 00:37
PROVIDERS: Hospitalist; ATTEND Internal Medicine
DX: I11.0 Hypertensive heart disease with heart failure (principal); I50.32 Chronic diastolic (congestive) heart failure; E55.9 Vitamin D deficiency, unspecified; F32.9 Major depressive disorder, single episode, unspecified; I48.0 Paroxysmal atrial fibrillation; J44.9 Chronic obstructive pulmonary disease, unspecified; I25.10 Atherosclerotic heart disease of native coronary artery without angina pectoris; F10.20 Alcohol dependence, uncomplicated; E66.09 Other obesity due to excess calories

== ENCOUNTER → 2020-05-19 | Outpatient (CLI) | payer OTHER | END | disposition home or self-care (01) | LOC: RESCLI 14:57 | PROVIDERS: ATTEND Internal Medicine | DX: E55.9 Vitamin D deficiency, unspecified (principal); F10.20 Alcohol dependence, uncomplicated; I11.0 Hypertensive heart disease with heart failure; I50.32 Chronic diastolic (congestive) heart failure; K21.9 Gastro-esophageal reflux disease without esophagitis; F32.9 Major depressive disorder, single episode, unspecified; I48.0 Paroxysmal atrial fibrillation; J44.9 Chronic obstructive pulmonary disease, unspecified; E66.09 Other obesity due to excess calories; I25.10 Atherosclerotic heart disease of native coronary artery without angina pectoris; F17.210 Nicotine dependence, cigarettes, uncomplicated; Z00.00 Encounter for general adult medical examination without abnormal findings; Z71.6 Tobacco abuse counseling; D75.89 Other specified diseases of blood and blood-forming organs; Z79.899 Other long term (current) drug therapy; Z79.82 Long term (current) use of aspirin; Z98.890 Other specified postprocedural states ==

== ENCOUNTER → 2020-06-21 | Outpatient (CLI) | payer OTHER | END | disposition home or self-care (01) | LOC: RESCLI 00:33 | PROVIDERS: ATTEND Internal Medicine Nephrology | DX: F32.9 Major depressive disorder, single episode, unspecified (principal); I48.0 Paroxysmal atrial fibrillation; J44.9 Chronic obstructive pulmonary disease, unspecified; D75.89 Other specified diseases of blood and blood-forming organs; E55.9 Vitamin D deficiency, unspecified; I10 Essential (primary) hypertension; I25.10 Atherosclerotic heart disease of native coronary artery without angina pectoris; K21.9 Gastro-esophageal reflux disease without esophagitis; Z72.0 Tobacco use; Z71.6 Tobacco abuse counseling; Z79.82 Long term (current) use of aspirin; Z79.899 Other long term (current) drug therapy ==

== ENCOUNTER 2021-10-15 11:54 | Emergency (ER) | payer OTHER ==
[~2021-10-15] VITALS: Wt 63.5 kg
[2021-10-15] MEDS ORDERED: PROTONIX20 MG PO (12:09)
[2021-10-15] MEDS ORDERED: COREG3.125 MG PO (12:09)
[2021-10-15] MEDS ORDERED: OPTIMAL D31250 MCG PO (12:11)
[2021-10-15] MEDS ORDERED: COZAAR25 M1 PO (12:11)
[2021-10-15] MEDS ORDERED: LASIX20 MG PO (12:12)
[2021-10-15] MEDS ORDERED: PAXIL30 M2 PO (12:12)
[2021-10-15] MEDS ORDERED: ASPIRIN81 M1 PO (12:13)
[2021-10-15] MEDS ORDERED: POTASSIUM CHLO10 MEQ PO (12:13)
[2021-10-15] MEDS ORDERED: NATURE'S BLEND F1 MG PO (12:13)
[2021-10-15] MEDS ORDERED: VITAMIN B1250 MCG PO (12:14)
[2021-10-15] MEDS ORDERED: SYMB160 INH (12:14)
[2021-10-15 12:28] LABS: BASO # 0.1 10*3/uL (0.0-0.1); EOS # 0.3 10*3/uL (0.0-0.4); EOS % 4.8 % (1.0-4.0); HEMATOCRIT 46.9 % (42.0-52.0); LYMPH # 2.6 10*3/uL (1.3-4.4); LYMPH % 50.2 % (27.0-41.0); MEAN CELL VOLUME 99.6 fl (80.0-94.0); MEAN CORPUSCULAR HGB 34.8 pg (27.0-31.0); MEAN PLATELET VOLUME 9.6 fl (9.6-12.3); MONO # 0.4 10*3/uL (0.1-1.0); MONO % 8.2 % (3.0-9.0); NEUT # 1.9 10*3/uL (2.3-7.9); NEUT % 35.4 % (47.0-73.0); PLATELET COUNT AUTOMATED 194 10*3/uL (130-400); RED BLOOD COUNT 4.71 10*6/uL (4.50-5.90); RED CELL DISTRI WIDTH 11.8 % (0-14.5); WHITE BLOOD COUNT 5.2 10*3/uL (4.8-10.8)
[2021-10-15 12:44] LABS: ALKALINE PHOSPHATASE 104 U/L (45-117); BUN 17 mg/dl (7-24); CHLORIDE 103 mmol/L (98-107); CREATININE 0.83 mg/dL (0.70-1.30); POTASSIUM 4.2 mmol/L (3.5-5.1); SGOT/AST 29 IU/L (3-35); SGPT/ALT 24 U/L (12-78); SODIUM 136 mmol/L (136-145); TOTAL PROTEIN 7.5 gm/dL (6.4-8.2)
[2021-10-15 12:48] LABS: BILIRUBIN Negative (Negative); BLOOD Negative (Negative); CLARITY Clear (Clear); COLOR Yellow (Yellow); GLUCOSE Negative (Negative); KETONE Negative (Negative); LEUKO ESTERASE Negative (Negative); NITRITE Negative (Negative); SPECIFIC GRAVITY 1.025 (1.001-1.030)
[2021-10-15 12:53] LABS: ETHYL ALCOHOL < 3.0 mg/dl (<3)
[2021-10-15 12:56] LABS: BACTERIA TRACE; EPITHELIAL CELLS 0-2; MUCOUS TRACE; URINE AMPHETAMINES < 1000 (1000ng/ml); URINE BARBITURATES < 200 (200ng/ml); URINE BENZODIAZEPINES < 200 (200ng/ml); URINE CANNABINOIDS (THC) > 50 (50ng/ml); URINE COCAINE < 300 (300ng/ml); URINE METHADONE < 300 (300ng/ml); URINE OPIATES < 300 (300ng/ml); WBC 0-2 wbc/hpf (0-5)
[2021-10-15 12:57] LABS: URINE PHENCYCLIDINE < 25 (25ng/ml)
== END 2021-10-15 16:13 | disposition home or self-care (01) ==
LOC: ED 11:54
PROVIDERS: Nurse Practitioner Family
DX: F32.9 Major depressive disorder, single episode, unspecified (principal); F41.9 Anxiety disorder, unspecified; Z79.899 Other long term (current) drug therapy; Z79.82 Long term (current) use of aspirin; Z87.891 Personal history of nicotine dependence

== ENCOUNTER 2023-09-20 12:27 | Inpatient (IN) | payer OTHER ==
[~2023-09-20] VITALS: Ht 177.8 cm; Wt 76.0 kg
[~2023-09-20 12:27] MED LIST changes: +ASPIRIN CHEWABL81 MG PO; +ASPIRIN81 M1 PO; +ATORVASTATIN CA40 M1 PO; +COREG6.25 MG PO; +COZAAR25 M1 PO; +LASIX20 MG PO; +OPTIMAL D31250 MCG PO; +PAROXETINE HCL30 MG PO; +PAXIL30 M2 PO; +PHARMASSURE V500 MCG PO; +POTASSIUM CHLO10 MEQ PO; +PROTONIX20 MG PO; +SYMB160 INH; +VITAMIN B1250 MCG PO; +VITAMIN D350 MC2 PO
[2023-09-20 12:40] VITALS: BP 129/74
[2023-09-20 13:11] LABS: HEMATOCRIT 41.7 % (42.0-52.0); MEAN CELL VOLUME 95.2 fl (80.0-94.0); MEAN CORPUSCULAR HGB 32.9 pg (27.0-31.0); MEAN CORPUSCULAR HGB CONC 34.5 g/dl (33.0-37.0); MEAN PLATELET VOLUME 10.1 fl (9.6-12.3); NUCLEATED RED BLOOD CELL 1.1 % (0.0-0.0); PLATELET COUNT AUTOMATED 52 10*3/uL (130-400); RED BLOOD COUNT 4.38 10*6/uL (4.50-5.90); RED CELL DISTRI WIDTH 14.7 % (0-14.5)
[2023-09-20 13:14] LABS: BILIRUBIN 1+ (Negative); BLOOD Negative (Negative); CLARITY Clear (Clear); COLOR Orange (Yellow); GLUCOSE Negative (Negative); KETONE Negative (Negative); LEUKO ESTERASE Trace (Negative); NITRITE Negative (Negative); SPECIFIC GRAVITY >= 1.030 (1.001-1.030)
[2023-09-20 13:24] LABS: BACTERIA TRACE; MUCOUS TRACE
[2023-09-20 13:25] LABS: ACT PARTIAL THROMBO TIME 29.3 SECONDS (20.0-32.1)
[2023-09-20 13:27] LABS: ALKALINE PHOSPHATASE 125 U/L (46-116); BUN 27 mg/dl (9-23); CHLORIDE 104 mmol/L (98-107); CPK 154 U/L (34-171); POTASSIUM 4.1 mmol/L (3.4-5.1); SGPT/ALT 56 U/L (5-49)
[2023-09-20 13:43] LABS: MANUAL DIFF REFLEX YES; WHITE BLOOD COUNT 1.9 10*3/uL (4.8-10.8)
[2023-09-20 13:51] LABS: BASOPHILS 1 % (0-1); BURR CELLS FEW; OVALOCYTES FEW; PLATELET SUFFICIENCY LOW (NORMAL); POLYCHROMASIA SLIGHT; TOTAL CELLS COUNTED 100 #CELLS
[2023-09-20] MEDS ORDERED: MULTIVITAMIN IV ONE (14:10)
[2023-09-20] MEDS ORDERED: MULTIVITAMIN CONCENTRATE (IV) 10 ML,Thiamine 100 MG,FOLIC ACID 1 MG in SODIUM CHLORIDE ... IV ONE (14:45)
[2023-09-20 15:39] VITALS: BP 122/74
[2023-09-20] MEDS ORDERED: Ondansetron Hydrochloride 4 MG/2 ML VIAL IV PRN (16:20)
[2023-09-20] MEDS ORDERED: Acetaminophen/Hydrocodone 5 MG/325 MG TABLET PO PRN (16:20)
[2023-09-20] MEDS ORDERED: BISACODYL 5 MG TAB PO PRN (16:20)
[2023-09-20] MEDS ORDERED: TEMAZEPAM 15 MG CAP PO PRN (16:20)
[2023-09-20] MEDS ORDERED: ACETAMINOPHEN 325 MG TAB PO PRN (16:20)
[2023-09-20] MEDS ORDERED: SODIUM CHLORIDE 0.9% 1,000 ML IV SCH (16:45)
[2023-09-20 17:00] VITALS: BP 97/63
[2023-09-20] MEDS ORDERED: Ceftriaxone Sodium 1 GM in SYRINGE INFUSION 10 ML IV SCH (18:00)
[2023-09-20 20:00] VITALS: BP 110/70
[2023-09-20] MEDS ORDERED: Dextromethorphan Hydrobromid 1 TAB TAB PO SCH (22:00)
[2023-09-20] MEDS ORDERED: NYSTATIN 15 GM BOT T SCH (22:00)
[2023-09-20 22:43] VITALS: BP 117/53
[2023-09-21] VITALS (74 sets, daily range): BP systolic 73–111; BP diastolic 43–66
[2023-09-21] MEDS ORDERED: IOHEXOL 300 MG/ML 100 ML VIAL IV ONE (00:20)
[2023-09-21] MEDS ORDERED: Albuterol Sulf/Ipratropium 3 ML VIAL NEB SCH (02:15)
[2023-09-21] MEDS ORDERED: AZITHROMYCIN 250 ML IV SCH ×2 (04:40→10:00)
[2023-09-21] MEDS ORDERED: DIAZEPAM 2 ML IV ONE (04:51)
[2023-09-21] MEDS ORDERED: PROPOFOL 50 ML IV ONE ×2 (05:05→05:13)
[2023-09-21] MEDS ORDERED: NOREPINEPHRINE BITARTRATE/D5W 250 ML IV ONE (05:05)
[2023-09-21] MEDS ORDERED: NOREPINEPHRINE BITARTRATE/D5W 250 ML IV SCH (05:05)
[2023-09-21 06:37] LABS: HEMATOCRIT 37.5 % (42.0-52.0); MEAN CELL VOLUME 98.2 fl (80.0-94.0); MEAN CORPUSCULAR HGB 33.2 pg (27.0-31.0); MEAN CORPUSCULAR HGB CONC 33.9 g/dl (33.0-37.0); MEAN PLATELET VOLUME 11.7 fl (9.6-12.3); NUCLEATED RED BLOOD CELL 0.7 % (0.0-0.0); PLATELET COUNT AUTOMATED 45 10*3/uL (130-400); RED BLOOD COUNT 3.82 10*6/uL (4.50-5.90); RED CELL DISTRI WIDTH 15.1 % (0-14.5); WHITE BLOOD COUNT 2.9 10*3/uL (4.8-10.8)
[2023-09-21 06:42] LABS: MANUAL DIFF REFLEX YES
[2023-09-21 06:43] LABS: ALKALINE PHOSPHATASE 113 U/L (46-116); BUN 32 mg/dl (9-23); CHLORIDE 109 mmol/L (98-107); CHOLESTEROL 135 mg/dL (<200); LDL CHOLESTEROL 56 mg/dL (9-159); POTASSIUM 4.3 mmol/L (3.4-5.1); SGPT/ALT 64 U/L (5-49); TOTAL PROTEIN 5.3 gm/dL (6.0-8.0); TRIGLYCERIDES 152 mg/dl (<150)
[2023-09-21] MEDS ORDERED: PROPOFOL 50 ML IV SCH (06:45)
[2023-09-21 07:17] LABS: ABG BASE EXCESS -2.9 mmol/L (-2.0-2.0); ARTERIAL BLOOD GAS PH 7.35 (7.35-7.45)
[2023-09-21 07:36] LABS: BASOPHILS 1 % (0-1); POLYCHROMASIA SLIGHT; TOTAL CELLS COUNTED 100 #CELLS
[2023-09-21 07:37] LABS: BURR CELLS FEW; OVALOCYTES FEW; PLATELET SUFFICIENCY LOW (NORMAL); ROULEAUX SLIGHT
[2023-09-21 08:44] LABS: ACT PARTIAL THROMBO TIME 29.3 SECONDS (20.0-32.1)
[2023-09-21] MEDS ORDERED: ROCURONIUM BROMIDE 50 MG/5 ML SYRINGE IV ONE (08:51)
[2023-09-21] MEDS ORDERED: FOAM BANDAGE HEEL T ONE (08:51)
[2023-09-21] MEDS ORDERED: ETOMIDATE 20 MG/10 ML VIAL IV ONE (08:51)
[2023-09-21] MEDS ORDERED: Cholecalciferol 5,000 IU CAP (125 MCG) PO SCH (10:00)
[2023-09-21] MEDS ORDERED: Pantoprazole Sodium 40 MG VIAL IV SCH (10:00)
[2023-09-21] MEDS ORDERED: Thiamine 100 MG TAB PO SCH (10:00)
[2023-09-21] MEDS ORDERED: Enoxaparin Sodium 40 MG/0.4 ML SYR SC SCH ×2 (10:00)
[2023-09-21] MEDS ORDERED: MULTIVITAMIN 1 TAB TAB PO SCH (10:00)
[2023-09-21] MEDS ORDERED: HEEL PROTECTOR DEVICE ONE (10:56)
[2023-09-21] MEDS ORDERED: FOAM BANDAGE 5X5 T ONE (10:56)
[2023-09-21] MEDS ORDERED: SILICONE CONTACT LAYER WOUND DRESSING (VERSATEL) ONE (10:56)
[2023-09-21] MEDS ORDERED: HYDROGEL WOUND DRESSING T ONE (10:56)
[2023-09-21] MEDS ORDERED: FOAM BANDAGE 6X6 T ONE (10:56)
[2023-09-21] MEDS ORDERED: AMMONIUM LACTATE 12% LOTION T SCH (12:00)
[2023-09-21] MEDS ORDERED: PROPOFOL 100 ML IV SCH (12:00)
[2023-09-21] MEDS ORDERED: Phenylephrine Hydrochloride 250 ML IV SCH (13:00)
[2023-09-21] MEDS ORDERED: VASOPRESSIN 100 ML IV ONE (13:26)
[2023-09-21] MEDS ORDERED: VASOPRESSIN 100 ML IV SCH ×2 (13:35→14:05)
[2023-09-21] MEDS ORDERED: Cefepime Hydrochloride 2 GM in SODIUM CHLORIDE 0.9% 50 ML IV SCH (14:00)
[2023-09-21] MEDS ORDERED: LORazepam 2 MG/ML VIAL IV PRN (14:45)
[2023-09-21] MEDS ORDERED: VANCOMYCIN/WATER FOR INJ (PEG) 250 ML IV SCH (16:00)
[2023-09-21] MEDS ORDERED: METRONIDAZOLE 100 ML IV SCH (16:00)
[2023-09-22] VITALS (90 sets, daily range): BP systolic 81–138; BP diastolic 44–75
[2023-09-22 05:22] LABS: ALKALINE PHOSPHATASE 97 U/L (46-116); BUN 27 mg/dl (9-23); CHLORIDE 106 mmol/L (98-107); POTASSIUM 4.2 mmol/L (3.4-5.1); SGPT/ALT 49 U/L (5-49); TOTAL PROTEIN 4.8 gm/dL (6.0-8.0)
[2023-09-22 06:13] LABS: HEMATOCRIT 32.8 % (42.0-52.0); MEAN CORPUSCULAR HGB 33.8 pg (27.0-31.0); MEAN CORPUSCULAR HGB CONC 33.8 g/dl (33.0-37.0); MEAN PLATELET VOLUME 11.4 fl (9.6-12.3); NUCLEATED RED BLOOD CELL 0.2 % (0.0-0.0); PLATELET COUNT AUTOMATED 34 10*3/uL (130-400); RED BLOOD COUNT 3.28 10*6/uL (4.50-5.90); RED CELL DISTRI WIDTH 15.6 % (0-14.5)
[2023-09-22 06:15] LABS: MANUAL DIFF REFLEX YES
[2023-09-22 07:24] LABS: PLATELET SUFFICIENCY LOW (NORMAL); POLYCHROMASIA SLIGHT; TOTAL CELLS COUNTED 100 #CELLS
[2023-09-22] MEDS ORDERED: FOAM BANDAGE HEEL T ONE (09:30)
[2023-09-22] MEDS ORDERED: SODIUM CHLORIDE 0.9% IV SCH (10:00)
[2023-09-22] MEDS ORDERED: Hydrocortisone Sodium Succin 100 MG/2 ML VIAL IV SCH (10:00)
[2023-09-22] MEDS ORDERED: FOLIC ACID IV SCH (10:00)
[2023-09-22] MEDS ORDERED: FOLIC ACID 50 MG/10 ML VIAL IV SCH (10:00)
[2023-09-22] MEDS ORDERED: DEXTROSE 50% 25 GM/50 ML SYR IV ONE (10:13)
[2023-09-22] MEDS ORDERED: SODIUM CHLORIDE 0.9% 1,000 ML IV SCH (12:00)
[2023-09-22] MEDS ORDERED: Hydrocortisone Sodium Succin 100 MG IV SCH (14:00)
[2023-09-22 21:52] LABS: URINE AMPHETAMINES Negative (1000ng/ml); URINE BARBITURATES Negative (200ng/ml); URINE BENZODIAZEPINES Negative (200ng/ml); URINE CANNABINOIDS (THC) Negative (50ng/ml); URINE COCAINE Negative (300ng/ml); URINE METHADONE Negative (300ng/ml); URINE OPIATES Negative (300ng/ml); URINE PHENCYCLIDINE Negative (25ng/ml)
[2023-09-22] MEDS ORDERED: Menthol/Zinc Oxide 4 GM THIN T SCH (22:00)
[2023-09-23] VITALS (87 sets, daily range): BP systolic 88–137; BP diastolic 45–74
[2023-09-23] MEDS ORDERED: LORazepam 1 MG TAB PO PRN
[2023-09-23] MEDS ORDERED: LORazepam 1 MG IV PRN
[2023-09-23 05:19] LABS: ALKALINE PHOSPHATASE 87 U/L (46-116); BUN 20 mg/dl (9-23); CHLORIDE 112 mmol/L (98-107); POTASSIUM 3.5 mmol/L (3.4-5.1); SGPT/ALT 42 U/L (5-49); TOTAL PROTEIN 4.5 gm/dL (6.0-8.0)
[2023-09-23 06:22] LABS: HEMATOCRIT 31.2 % (42.0-52.0); MEAN CELL VOLUME 99.7 fl (80.0-94.0); MEAN CORPUSCULAR HGB 33.5 pg (27.0-31.0); MEAN CORPUSCULAR HGB CONC 33.7 g/dl (33.0-37.0); MEAN PLATELET VOLUME 12.7 fl (9.6-12.3); NUCLEATED RED BLOOD CELL 0.3 % (0.0-0.0); PLATELET COUNT AUTOMATED 38 10*3/uL (130-400); RED BLOOD COUNT 3.13 10*6/uL (4.50-5.90); RED CELL DISTRI WIDTH 15.4 % (0-14.5); WHITE BLOOD COUNT 6.7 10*3/uL (4.8-10.8)
[2023-09-23 07:26] LABS: ABG BASE EXCESS -5.2 mmol/L (-2.0-2.0); ARTERIAL BLOOD GAS PH 7.351 (7.35-7.45)
[2023-09-23 07:32] LABS: MANUAL DIFF REFLEX YES
[2023-09-23 07:35] LABS: PLATELET SUFFICIENCY LOW (NORMAL); TOTAL CELLS COUNTED 100 #CELLS; TOXIC GRANULATION SLIGHT
[2023-09-23 07:37] LABS: MICROCYTOSIS SLIGHT
[2023-09-23] MEDS ORDERED: Water, Sterile 10 ML VIAL ONE (09:29)
[2023-09-23] MEDS ORDERED: Water, Sterile 10 ML VIAL IV SCH (10:00)
[2023-09-23] MEDS ORDERED: SODIUM CHLORIDE 0.9% 500 ML IV ONE (16:30)
[2023-09-23] MEDS ORDERED: PROPOFOL 200 MG/20 ML VIAL IV ONE (18:01)
[2023-09-24] VITALS (94 sets, daily range): BP systolic 80–134; BP diastolic 41–70
[2023-09-24 05:07] LABS: HBSAG Negative (Negative); HEP B CORE AB, IGM Negative (Negative); HEPATITIS C ANTIBODY Non Reactive (Non Reactive)
[2023-09-24 05:08] LABS: ALKALINE PHOSPHATASE 86 U/L (46-116); BUN 19 mg/dl (9-23); CHLORIDE 113 mmol/L (98-107); POTASSIUM 3.8 mmol/L (3.4-5.1); SGPT/ALT 37 U/L (5-49); TOTAL PROTEIN 4.9 gm/dL (6.0-8.0)
[2023-09-24 06:43] LABS: HEMATOCRIT 29.5 % (42.0-52.0); LYMPH # 0.7 10*3/uL (1.3-4.4); LYMPH % 10.4 % (27.0-41.0); MEAN CELL VOLUME 101.4 fl (80.0-94.0); MEAN CORPUSCULAR HGB CONC 32.5 g/dl (33.0-37.0); MEAN PLATELET VOLUME 11.3 fl (9.6-12.3); MONO # 0.2 10*3/uL (0.1-1.0); MONO % 2.3 % (3.0-9.0); NEUT # 5.8 10*3/uL (2.3-7.9); NEUT % 86.8 % (47.0-73.0); NUCLEATED RED BLOOD CELL 0.5 % (0.0-0.0); RED BLOOD COUNT 2.91 10*6/uL (4.50-5.90); RED CELL DISTRI WIDTH 15.8 % (0-14.5); WHITE BLOOD COUNT 6.7 10*3/uL (4.8-10.8)
[2023-09-24 06:46] LABS: PLATELET COUNT AUTOMATED 84 10*3/uL (130-400)
[2023-09-24] MEDS ORDERED: VANCOMYCIN/WATER FOR INJ (PEG) 250 ML IV SCH (08:00)
[2023-09-24 08:23] LABS: ABG BASE EXCESS -4.2 mmol/L (-2.0-2.0); ARTERIAL BLOOD GAS PH 7.381 (7.35-7.45)
[2023-09-24] MEDS ORDERED: GUAIFENESIN 10 ML UDC PO SCH (12:00)
[2023-09-24] MEDS ORDERED: GUAIFENESIN/DEXTROMETHORPHAN 10 ML UDC PO SCH (12:00)
[2023-09-24] MEDS ORDERED: LACTULOSE 20 GM/30 ML UDC NG ONE (15:30)
[2023-09-24] MEDS ORDERED: DEXMEDETOMIDINE IN 0.9 % NACL 100 ML IV SCH (15:35)
[2023-09-24] MEDS ORDERED: FOAM BANDAGE 5X5 T ONE (15:46)
[2023-09-24] MEDS ORDERED: LEPTOSPERMUM HONEY 0.5 OZ TUBE T ONE (15:46)
[2023-09-24] MEDS ORDERED: SILICONE CONTACT LAYER WOUND DRESSING (VERSATEL) ONE (15:46)
[2023-09-24] MEDS ORDERED: LEVETIRACETAM IN NACL (ISO-OS) 100 ML IV ONE (16:00)
[2023-09-24] MEDS ORDERED: PROPOFOL 100 ML IV ONE (17:46)
[2023-09-24] MEDS ORDERED: PROPOFOL 100 ML IV SCH (23:30)
[2023-09-25] VITALS (58 sets, daily range): BP systolic 81–124; BP diastolic 45–91
[2023-09-25 06:33] LABS: ALKALINE PHOSPHATASE 81 U/L (46-116); BUN 18 mg/dl (9-23); CHLORIDE 115 mmol/L (98-107); POTASSIUM 3.1 mmol/L (3.4-5.1); SGPT/ALT 31 U/L (5-49); TOTAL PROTEIN 4.7 gm/dL (6.0-8.0)
[2023-09-25 06:36] LABS: BASO % 0.2 % (0.0-1.0); HEMATOCRIT 28.6 % (42.0-52.0); LYMPH # 0.7 10*3/uL (1.3-4.4); LYMPH % 11.4 % (27.0-41.0); MEAN CELL VOLUME 101.8 fl (80.0-94.0); MEAN CORPUSCULAR HGB 33.1 pg (27.0-31.0); MEAN CORPUSCULAR HGB CONC 32.5 g/dl (33.0-37.0); MEAN PLATELET VOLUME 10.6 fl (9.6-12.3); MONO # 0.2 10*3/uL (0.1-1.0); NEUT # 5.5 10*3/uL (2.3-7.9); NEUT % 84.6 % (47.0-73.0); PLATELET COUNT AUTOMATED 92 10*3/uL (130-400); RED BLOOD COUNT 2.81 10*6/uL (4.50-5.90); RED CELL DISTRI WIDTH 16.1 % (0-14.5); WHITE BLOOD COUNT 6.4 10*3/uL (4.8-10.8)
[2023-09-25] MEDS ORDERED: POTASSIUM CHLORIDE 100 ML IV SCH (09:00)
[2023-09-25] MEDS ORDERED: Enoxaparin Sodium 40 MG/0.4 ML SYR SC SCH (10:00)
[2023-09-25] MEDS ORDERED: FOLIC ACID 1 MG TAB NG SCH (10:00)
[2023-09-25] MEDS ORDERED: LEVETIRACETAM 750 MG in SODIUM CHLORIDE 0.9% 100 ML IV SCH (10:00)
[2023-09-25] MEDS ORDERED: BISACODYL 10 MG SUPP R PRN (11:00)
[2023-09-25 11:12] LABS: ARTERIAL BLOOD GAS PH 7.372 (7.35-7.45)
[2023-09-25 11:13] LABS: ABG BASE EXCESS -5.9 mmol/L (-2.0-2.0)
[2023-09-25 15:10] LABS: ALKALINE PHOSPHATASE 86 U/L (46-116); BUN 19 mg/dl (9-23); CHLORIDE 115 mmol/L (98-107); SGPT/ALT 30 U/L (5-49); TOTAL PROTEIN 4.8 gm/dL (6.0-8.0)
[2023-09-25 15:15] LABS: POTASSIUM 4.4 mmol/L (3.4-5.1)
[2023-09-25 15:42] LABS: ARTERIAL BLOOD GAS PH 7.462 (7.35-7.45)
[2023-09-25] MEDS ORDERED: DIAZEPAM 10 MG/2 ML SYR IV ONE (21:00)
[2023-09-26] VITALS: BP 111/65
[2023-09-26] MEDS ORDERED: DIAZEPAM 10 MG/2 ML SYR IV PRN (02:20)
[2023-09-26 04:00] VITALS: BP 128/71
[2023-09-26 05:22] LABS: ALKALINE PHOSPHATASE 79 U/L (46-116); BUN 24 mg/dl (9-23); CHLORIDE 116 mmol/L (98-107); POTASSIUM 4.3 mmol/L (3.4-5.1); SGPT/ALT 31 U/L (5-49); TOTAL PROTEIN 4.8 gm/dL (6.0-8.0)
[2023-09-26 06:29] LABS: HEMATOCRIT 27.6 % (42.0-52.0); LYMPH # 1.2 10*3/uL (1.3-4.4); LYMPH % 17.5 % (27.0-41.0); MEAN CELL VOLUME 101.5 fl (80.0-94.0); MEAN CORPUSCULAR HGB 33.5 pg (27.0-31.0); MEAN PLATELET VOLUME 10.8 fl (9.6-12.3); MONO # 0.3 10*3/uL (0.1-1.0); NEUT # 5.1 10*3/uL (2.3-7.9); NEUT % 76.4 % (47.0-73.0); NUCLEATED RED BLOOD CELL 0.3 % (0.0-0.0); PLATELET COUNT AUTOMATED 81 10*3/uL (130-400); RED BLOOD COUNT 2.72 10*6/uL (4.50-5.90); RED CELL DISTRI WIDTH 16.4 % (0-14.5); WHITE BLOOD COUNT 6.6 10*3/uL (4.8-10.8)
[2023-09-26 08:00] VITALS: BP 114/66
[2023-09-26 11:32] LABS: ARTERIAL BLOOD GAS PH 7.44 (7.35-7.45)
[2023-09-26 12:00] VITALS: BP 115/62
[2023-09-26] MEDS ORDERED: Nicotine 7 MG PATCH T PRN (14:50)
[2023-09-26] MEDS ORDERED: FUROSEMIDE 20 MG/2 ML VIAL IV ONE (15:50)
[2023-09-26] MEDS ORDERED: LEVETIRACETAM 500 MG TAB PO ONE (15:50)
[2023-09-26 16:00] VITALS: BP 119/59
[2023-09-26] MEDS ORDERED: LEVETIRACETAM IN NACL (ISO-OS) 100 ML IV SCH (16:15)
[2023-09-26] MEDS ORDERED: Hydrocortisone Sodium Succin 100 MG/2 ML VIAL IV SCH (18:00)
[2023-09-26 20:00] VITALS: BP 119/61
== END 2023-09-27 00:26 | disposition short-term general hospital (02) | DRG 720 ==
LOC: ED 12:27 → EDHOLD 15:33 → ICCU 15:33 → 4E 16:24 → ICCU 09-21 05:01
PROVIDERS: Family Medicine; Internal Medicine; Internal Medicine Critical Care Medicine; Nurse Practitioner; Student in an Organized Health Care Education/Training Program; ADMIT Internal Medicine; ATTEND Internal Medicine
PROC: 5A1945Z Respiratory Ventilation, 24-96 Consecutive Hours (ICD-10-PCS; principal; 2023-09-21)
PROC: 0BH17EZ Insertion of Endotracheal Airway into Trachea, Via Natural or Artificial Opening (ICD-10-PCS; 2023-09-21)
PROC: 02HV33Z Insertion of Infusion Device into Superior Vena Cava, Percutaneous Approach (ICD-10-PCS; 2023-09-21)
PROC: B548ZZA Ultrasonography of Superior Vena Cava, Guidance (ICD-10-PCS; 2023-09-21)
PROC: 0HBRXZZ Excision of Toe Nail, External Approach (ICD-10-PCS; 2023-09-21)
PROC: 0HBRXZZ Excision of Toe Nail, External Approach (ICD-10-PCS; 2023-09-21)
PROC: 0HBRXZZ Excision of Toe Nail, External Approach (ICD-10-PCS; 2023-09-21)
PROC: 0HBRXZZ Excision of Toe Nail, External Approach (ICD-10-PCS; 2023-09-21)
PROC: 0HBRXZZ Excision of Toe Nail, External Approach (ICD-10-PCS; 2023-09-21)
PROC: 0HBRXZZ Excision of Toe Nail, External Approach (ICD-10-PCS; 2023-09-21)
PROC: 0HBRXZZ Excision of Toe Nail, External Approach (ICD-10-PCS; 2023-09-21)
PROC: 0HBRXZZ Excision of Toe Nail, External Approach (ICD-10-PCS; 2023-09-21)
PROC: 0HBRXZZ Excision of Toe Nail, External Approach (ICD-10-PCS; 2023-09-21)
PROC: 30233R1 Transfusion of Nonautologous Platelets into Peripheral Vein, Percutaneous Approach (ICD-10-PCS; 2023-09-23)
PROC: 0DH68UZ Insertion of Feeding Device into Stomach, Via Natural or Artificial Opening Endoscopic (ICD-10-PCS; 2023-09-23)
DX: A41.9 Sepsis, unspecified organism (principal); J96.00 Acute respiratory failure, unspecified whether with hypoxia or hypercapnia; R65.21 Severe sepsis with septic shock; J18.9 Pneumonia, unspecified organism; S22.040A Wedge compression fracture of fourth thoracic vertebra, initial encounter for closed fracture; S22.080A Wedge compression fracture of T11-T12 vertebra, initial encounter for closed fracture; D61.818 Other pancytopenia; G93.41 Metabolic encephalopathy; D84.9 Immunodeficiency, unspecified; J44.9 Chronic obstructive pulmonary disease, unspecified; S32.010A Wedge compression fracture of first lumbar vertebra, initial encounter for closed fracture; S81.001A Unspecified open wound, right knee, initial encounter; S91.302A Unspecified open wound, left foot, initial encounter; K22.2 Esophageal obstruction; D70.9 Neutropenia, unspecified; K74.60 Unspecified cirrhosis of liver; F41.9 Anxiety disorder, unspecified; G89.29 Other chronic pain; M54.9 Dorsalgia, unspecified; I50.32 Chronic diastolic (congestive) heart failure; K21.9 Gastro-esophageal reflux disease without esophagitis; F32.A Depression, unspecified; R73.9 Hyperglycemia, unspecified; R74.01 Elevation of levels of liver transaminase levels; K44.9 Diaphragmatic hernia without obstruction or gangrene; K20.90 Esophagitis, unspecified without bleeding; B35.1 Tinea unguium; N39.0 Urinary tract infection, site not specified; K56.41 Fecal impaction; K80.20 Calculus of gallbladder without cholecystitis without obstruction; K29.70 Gastritis, unspecified, without bleeding; K25.9 Gastric ulcer, unspecified as acute or chronic, without hemorrhage or perforation; R13.10 Dysphagia, unspecified; F10.10 Alcohol abuse, uncomplicated; Z87.891 Personal history of nicotine dependence; Z82.49 Family history of ischemic heart disease and other diseases of the circulatory system; Z83.3 Family history of diabetes mellitus; Z83.6 Family history of other diseases of the respiratory system; Z86.73 Personal history of transient ischemic attack (TIA), and cerebral infarction without residual deficits; W18.39XA Other fall on same level, initial encounter; Y93.89 Activity, other specified; Z71.6 Tobacco abuse counseling; Y92.89 Other specified places as the place of occurrence of the external cause; Y99.8 Other external cause status